=== PATIENT | female | born 1970 ===

== ENCOUNTER → 2017-09-24 18:23 | Outpatient (CLI) | payer OTHER ==
[2017-09-24 19:36] LABS: C-REACTIVE PROTEIN 0.8 mg/dL (0.0-0.9); T4 THYROXIN - FREE 0.82 ng/dL (0.76-1.46); THYROID STIMULATING HORMONE 0.88 uIU/mL (0.36-3.74)
[2017-09-24 20:35] LABS: ERYTHROCYTE SEDIMENTATION RATE 15 mm/hr (0-20)
[2017-09-26 10:20] LABS: ANA REFLEX - DIRECT Negative (Negative)
[2017-09-28 03:06] LABS: CYCLIC CITRULL PEPTIDE IGG/IGA 5 units (0-19)
[2017-09-30 03:12] LABS: RMSF IGM 0.36 index (0.00-0.89)
[2017-09-30 14:23] LABS: EHRLICHIA CHAFF IGG Negative (Neg:<1:64); EHRLICHIA CHAFF IGM Negative (Neg:<1:20); F. TULARENSIS - IGG Negative (()); F. TULARENSIS - IGM Negative (()); HGE IGG TITER Negative (Neg:<1:64); HGE IGM TITER Negative (Neg:<1:20)
== END | disposition home or self-care (01) ==
LOC: D.LABREF 18:23
PROVIDERS: Student in an Organized Health Care Education/Training Program
DX: R53.81 Other malaise (principal)